=== PATIENT | female | born 1980 | race Caucasian/White ===

== ENCOUNTER 2017-06-05 10:13 | Emergency (ER) | payer MEDICAID, OTHER ==
[2017-06-05] MEDS ORDERED: NS 0.9% 1000 ML* 1,000 ML IV ONE (12:28)
[2017-06-05 13:43] LABS: Hematocrit 36 % (35-47); Hemoglobin 12.1 g/dl (12.0-16.0); Mean Corpuscular HGB Conc 34 g/dl (31-36); Mean Corpuscular Hemoglobin 30 pg (27-31); Mean Corpuscular Volume 89 fL (80-97); Mean Platelet Volume 10 um3 (7.4-10.4); Red Blood Count 4.05 10^6/ul (4.0-5.4); Red Cell Distribution Width 13 % (10.5-15)
--- NOTE | 2017-06-05 13:51 | ED ---
GI/ HPI - HPI Summary HPI Summary: 37 female presents to ED with complaints of left flank pain, hematuria, dysuria and nausea/diarrhea that has been ongoing for the past 4 days. Pain worsened on Sunday and again today. Patient states she has been urinating blood and when she wipes. Denies blood in stool and vaginal symptoms, bleeding and discharge. Patient admits subjective low grade fever. No vomiting or abdominal pain. Denies any history of kidney stones. States she has had UTIs in the past however it feels different and the pain is excruciating. Took ibuprofen and excedrin this AM without relief. Nothing makes pain better or worse, hot baths makes pain slightly better. Does get worse with urination and is experiencing dysuria. No other PMHx. No other complaints. Never had symptoms like this before. - History of Current Complaint Chief Complaint: EDFlankPain Time Seen by Provider: 06/05/17 12:28 Stated Complaint: FLANK PAIN Hx Obtained From: Patient Onset/Duration: Started Days Ago, Still Present, Worse Since Timing: Constant, Lasting Days Severity: Moderate Current Severity: Severe Pain Intensity: 9 Location of Pain: Flank - left Pain Characteristics: Sharp, Cramping, Aching Pain Radiates to: LLQ Associated Signs and Symptoms: Positive: Nausea, Hematuria, Dysuria, Flank Pain , UTI Symptoms Aggravating Factor(s): Voiding, Urination Alleviating Factor(s): Nothing - hot baths PMH/Surg Hx/FS Hx/Imm Hx Endocrine/Hematology History: Denies: Hx Diabetes Cardiovascular History: Denies: Hx Hypertension Respiratory History: Denies: Hx Asthma - Surgical History Surgery Procedure, Year, and Place: n/a - Immunization History Immunizations Up to Date: Yes Infectious Disease History: No Infectious Disease History: Denies: Traveled Outside the [place] in Last 30 Days - Family History Known Family History: Positive: None - Social History Alcohol Use: Rare Hx Substance Use: No Review of Systems Positive: Fever - subjective Cardiovascular: Negative Respiratory: Negative Positive: Nausea Positive: see HPI, burning, dysuria, frequency, flank pain, hematuria, pain, urgency Musculoskeletal: Negative Skin: Negative All Other Systems Reviewed And Are Negative: Yes Physical Exam Triage Information Reviewed: Yes Vital Signs On Initial Exam: Initial Vitals Temp Pulse Resp BP Pulse Ox 99.0 F 68 20 116/72 99 06/05/17 10:28 06/05/17 10:28 06/05/17 10:28 06/05/17 10:28 06/05/17 10:28 Vital Signs Reviewed: Yes Appearance: Positive: Well-Appearing, Well-Nourished, Pain Distress - tearful, moderate Skin: Positive: Warm, Skin Color Reflects Adequate Perfusion, Dry, Cold. Negative: Numb, Diaphoretic, Jaundiced, Mass @, Erythema @ Head/Face: Positive: Normal Head/Face Inspection Eyes: Positive: Conjunctiva Clear ENT: Positive: Hearing grossly normal, Pharynx normal Neck: Positive: Supple, Nontender Respiratory/Lung Sounds: Positive: Clear to Auscultation, Breath Sounds Present. Negative: Rales, Rhonchi, Wheezes Cardiovascular: Positive: Normal, RRR, Pulses are Symmetrical in both Upper and Lower Extremities. Negative: Murmur, Rub Abdomen Description: Positive: No Organomegaly, Soft, CVA Tenderness (L), Guarding - suprapubic and LLQ palpation, Other: - tender on palpation of LLQ, suprapubic area and left flank. Negative: Bruit, CVA Tenderness (R), Distended , Hernia @, McBurney's Point Tenderness, Peritoneal Signs Bowel Sounds: Positive: Present Pelvic Exam: Positive: external exam normal, speculum exam normal - besides discharge, bimanual exam normal, no cerv. motion tender, no masses, discharge - white/burger in color, clumpy, with erythema surround vaginal hall resembling liz versus BV, no odor. Negative: active bleeding, blood, cervicitis, lesions, tender w/ cervical motion Musculoskeletal: Positive: Normal, Strength/ROM Intact Neurological: Positive: Normal, Sensory/Motor Intact, Alert, Oriented to Person Place, Time Diagnostics - Vital Signs Vital Signs Temp Pulse Resp BP Pulse Ox 06/05/17 10:28 99.0 F 68 20 116/72 99 - Laboratory Lab Results: Lab Results 06/05/17 Range/Units 13:31 WBC 7.0 (3.5-10.8) 10^3/ul RBC 4.05 (4.0-5.4) 10^6/ul Hgb 12.1 (12.0-16.0) g/dl Hct 36 (35-47) % MCV 89 (80-97) fL MCH 30 (27-31) pg MCHC 34 (31-36) g/dl RDW 13 (10.5-15) % Plt Count 168 (150-450) 10^3/ul MPV 10 (7.4-10.4) um3 Neut % (Auto) 75.4 (38-83) % Lymph % (Auto) 19.7 L (25-47) % [place] % (Auto) 3.7 (1-9) % Eos % (Auto) 0.8 (0-6) % Baso % (Auto) 0.4 (0-2) % Absolute Neuts (auto) 5.3 (1.5-7.7) 10^3/ul Absolute Lymphs (auto) 1.4 (1.0-4.8) 10^3/ul Absolute Monos (auto) 0.3 (0-0.8) 10^3/ul Absolute Eos (auto) 0.1 (0-0.6) 10^3/ul Absolute Basos (auto) 0 (0-0.2) 10^3/ul Absolute Nucleated RBC 0 10^3/ul Nucleated RBC % 0 Result Diagrams: 06/05/17 13:31 06/05/17 13:31 Lab Statement: Any lab studies that have been ordered have been reviewed, and results considered in the medical decision making process. - CT abd/pelvis wo CT Interpretation: No Acute Changes - negative no hydropnephrosis or nephrolithiasis. bilateral spondylosis at L5 CT Interpretation Completed By: Radiologist - and myself Re-Evaluation - Re-Evaluation First Eval Re-Evaluation Time: 14:15 Change: Improved - had relief after pain medication GIGU Course/Dx - Course Course Of Treatment: given fluids and pain management. had relief. Ct abd/ pelvis obtained to rule out renal calculi, hydronephrosis, ovarian cysts and pyelo. Was negative. Labs obtained and unremarkable. Nomral vitals. Urinalysis showed blood bacteria and luek esterase. Pelvic exam revealed a possible vulvovaginal candidiasis versus liz, resembled more like liz and no odor noted. Appears to be suffering from UTI and candidiasis versus MSK strain. Given liz diflucan while in ED and first dose of bactrim for uti. continue ibuprofen for pain, heat, fluids, rest. Aware of worsening signs and symptoms to watch out for. Follow up pcp. Will hear about culture results if positive. patient agrees and understands. denied any concern for stds and did not want prophylactic treatment. Wanted to wait for BV culture results before treatment. No other concerns of other etiolgoy at this time. - Diagnoses Differential Diagnoses - Female: Pelvic Inflammatory Disease, Renal Calculi, Renal Colic, STD, Urinary Tract Infection, Ureteral Calculi, Vaginitis, Other - BV, Liz Provider Diagnoses: UTI (urinary tract infection), Vaginal infection, Left flank pain Discharge - Discharge Plan Condition: Stable Disposition: HOME Prescriptions: Sulfamethox/Trimethoprim DS* [Bactrim DS 800/160 TAB*] 1 tab PO BID #9 tab Patient Education Materials: Urinary Tract Infection in Women (ED), Vulvovaginal Candidiasis (ED), Hematuria (ED), Vaginitis (ED) Referrals: [facility] [Outside] Chino Cotton MD [Medical Doctor] - Additional Instructions: Take prescribed medication for UTI as directed. Take until entire dose is finished. Follow up with PCP/OBGYN to ensure improvement. Increase fluid intake. Continue ibuprofen/tylenol as needed for pain. Any new, persistent or worsening symptoms please seek medical attention promptly , as discussed. You will hear about culture results, if positive once received, or if any medications have to be changed.
[2017-06-05] MEDS ORDERED: Morphine INJ* 4 MG/ML 1 ML CARPUJECT IV ONE (13:56)
[2017-06-05] MEDS ORDERED: Acetaminophen TAB* 325 MG PO ONE (13:56)
[2017-06-05 13:57] LABS: ALT 10 U/L (7-52); AST 13 U/L (13-39); Albumin 4.2 g/dL (3.2-5.2); Alkaline Phosphatase 64 U/L (34-104); Anion Gap 5 mmol/L (2-11); Blood Urea Nitrogen 7 mg/dL (6-24); C Reactive Protein 2.08 mg/L (< 5.00); CO2 Carbon Dioxide 25 mmol/L (22-32); Calcium 8.9 mg/dL (8.6-10.3); Chloride 106 mmol/L (101-111); EGFR African American 122.5 (>60); EGFR Non-African American 95.2 (>60); Globulin 2.5 g/dL (2-4); Glucose 89 mg/dL (70-100); Potassium 3.7 mmol/L (3.5-5.0); Sodium 136 mmol/L (133-145); Total Protein 6.7 g/dL (6.4-8.9)
[2017-06-05] MEDS ORDERED: Ondansetron INJ* 2 MG/ML VIAL IV ONE (14:00)
[2017-06-05 14:03] LABS: Urine Bacteria 1+ (Absent); Urine Bilirubin Negative (Negative); Urine Glucose Negative (Negative); Urine Nitrite Negative (Negative)
--- NOTE | 2017-06-05 14:53 | RAD ---
CLINICAL HISTORY: Left flank pain COMPARISON: None TECHNIQUE: Multiple contiguous axial CT scans were obtained of the abdomen and pelvis, without intravenous contrast enhancement. Coronal and sagittal multiplanar reformations are submitted for review. Oral contrast was not administered. FINDINGS: LUNG BASES: The lung bases are clear. LIVER: The liver is normal in shape, size, contour, and attenuation. BILE DUCTS: There is no intrahepatic or extrahepatic biliary dilatation. GALLBLADDER: The gallbladder is normal, without pericholecystic inflammatory change. PANCREAS: The pancreas is normal, without mass or ductal dilatation. SPLEEN: Normal in size and appearance. UPPER GI TRACT: Evaluation of the gastrointestinal tract is limited by incomplete gastric distention. The upper GI tract is unremarkable. SMALL BOWEL AND MESENTERY: The small bowel is normal in contour, course, and caliber. There is no obstruction or dilatation. COLON: The colon is normal in contour, course, caliber. There is no pericolonic inflammatory change. There is a tubular, vermiform, hollow viscus that is blind ending, and originates from the cecum, consistent with a normal appendix. There is no periappendiceal inflammatory change. This is best seen on coronal images 40 through 47. ADRENALS: Normal bilaterally. KIDNEYS: The kidneys are normal in shape, size, contour, and axis. There is no hydronephrosis or nephrolithiasis. BLADDER: The bladder is smooth in contour. PELVIC ORGANS: The uterus and adnexa are grossly normal for technique. AORTA: The aorta is normal. IVC: Unremarkable LYMPH NODES: There is no lymphadenopathy by size criteria. ABDOMINAL WALL: There is no evidence for abdominal wall hernia. BONES AND SOFT TISSUES: There are bilateral pars defects at L5. Mild degenerative changes are noted. OTHER: None IMPRESSION: 1. NO HYDRONEPHROSIS OR NEPHROLITHIASIS. 2. BILATERAL SPONDYLOLYSIS OF L5
[2017-06-05] MEDS ORDERED: Fluconazole 100 MG TAB* TAB PO ONE (15:23)
[2017-06-05] MEDS ORDERED: Sulfamethox/Trimethoprim DS 800/160* TAB PO ONE (15:24)
--- NOTE | 2017-06-07 09:48 | PN ---
Progress Note - Progress Note Date of Service: 06/07/17 Note: vaginal culture grew Gardnerella. placed on flagyl 500mg bid x7days. spoke with patient about culture. patient understand and agrees with plan.
== END 2017-06-05 15:38 | disposition home or self-care (01) ==
LOC: ED 10:13
DX: N39.0 Urinary tract infection, site not specified (principal); R31.9 Hematuria, unspecified; N76.0 Acute vaginitis; B96.89 Other specified bacterial agents as the cause of diseases classified elsewhere; R10.32 Left lower quadrant pain; M43.06 Spondylolysis, lumbar region; Z32.02 Encounter for pregnancy test, result negative; Z87.440 Personal history of urinary (tract) infections
CPT/HCPCS: 36415; 74176; 80053; 81003; 81015; 83605; 84702; 85025; 86140; 87086; 87480; 87510; 87660; 96361; 96374; 96375; 99283; A9270-GY; J2270; J2405